=== PATIENT | female | born 1995 | race Caucasian/White ===

== ENCOUNTER → 2024-09-17 10:43 | Outpatient (REF) | payer OTHER, SELFPAY | LOC: RAD 10:43 | PROVIDERS: ATTENDING PHYSICIAN Physician Assistant Medical | DX: M25.512 Pain in left shoulder (principal) | CPT/HCPCS: 73030 ==

== ENCOUNTER 2024-10-28 05:31 | Emergency (ER) | payer OTHER, SELFPAY ==
[2024-10-28 05:33] VITALS: BP 130/81
[2024-10-28 05:48] VITALS: BP 121/72
--- NOTE | 2024-10-28 06:15 | ED.GENMED ---
History of Present Illness
General
Chief Complaint: Flank Pain
Source: patient
Time Seen by Provider: 10/28/24 05:59
History of Present Illness
History of Present Illness:
This patient is a 28-year-old female presents emergency department with complaints of abdominal discomfort, generalized that developed Friday morning approximately 4 AM followed by multiple episodes of nonbloody vomiting. She then transition to
having loose bowel movements without blood. By yesterday she noted a posterior occipital headache all day, similar to headaches that she has had in the past which she describes as a 'migraine'. This is since resolved but around 12:30 AM today she
developed very watery loose stools described as every 15 minutes. She denies recent travel, recent antibiotics, recent sick contacts. She also notes for the last 24 hours that she has had waxing and waning right flank pain, without exacerbating
relieving factors. This is sporadic and she thought potentially related to being in bed yesterday. It is not movement related. She denies dysuria, urgency, frequency, hematuria. She felt subjective fever at 12:30 AM today. Patient denies
abdominal pain currently. She also denies chest pain, shortness of breath, or other complaints.
Past History
Past History
ED Past Medical History: None
ED Past Surgical History: None
Social History
Tobacco: Non-smoker
Alcohol: Occasional
Drug: None
Personal: Single
Living: with family
Employment: Employed
Family History
Family History: Other (Noncontributory)
Phy Exam
Physical Exam
Physical Exam:
GENERAL: Alert , in no apparent distress
EYE: pupils equal and reactive
NECK: Supple, no significant adenopathy.
ENT: o/p clr, mm dry
CARDIAC: Regular rate and rhythm .
LUNGS: Clear breath sounds bilaterally, no acute respiratory distress, no wheezes/rales/rhonchi
ABDOMEN: Soft, without focal tenderness, no r/g, no cvat
NEUROLOGICAL: Alert and oriented, no focal neuro deficits
SKIN: Warm and dry, skin intact.
MUSCULOSKELETAL: No edema, well perfused.
PSYCH: Normal and appropriate interaction.
Course
Orders/Labs/Results
Orders:
Orders
10/28/24 06:14
CT Abd/Pel (IV only)-DH only Urgent
Comment:
Reason For Exam: abd pain, n,v, d, r Flank pain
Cardiac Monitoring- Treatment ONCE
0.9% Sodium Chloride 1000 ml [Nss] 1,000 ml IV BOLUS
10/28/24 06:25
Test Result ONCE
10/28/24 06:34
Complete Blood Count/No Diff Urgent
Comprehensive Metabolic Panel Urgent
HCG, Serum Qualitative Screen Urgent
Lipase Urgent
Stool Culture Urgent
FEROZ Source: Feces/Stool
Specimen Description:
Date Specimen was Collected: 10/28/24
Time Specimen was Collected: 06:32
10/28/24 06:37
Urinalysis Reflex To Culture Urgent
Date Specimen was Collected: 10/28/24
Time Specimen was Collected: 06:33
Urine Microscopic Reflex Cult Urgent
10/28/24 07:28
Ketorolac [Toradol] 15 mg IV NOW STA
10/28/24 09:09
Amoxicillin 875 mg/Clav 125 mg [Augmentin 875 mg/125 mg] 1 tablet PO NOW STA
Abnormal Lab Results
10/28/24 10/28/24
06:34 06:37
Chloride 108 H mmol/L
(98-107)
Urine Ketones 3+ A
(Negative)
Ur Occult Blood Reflex 2+ A
(Negative)
Urine RBC 3-6 A /HPF
(0-2)
Urine Bacteria (Reflex) Few A
(Negative)
Urine Albumin (Reflex) 2+ A
(Neg - Trace)
10/28/24 06:34
10/28/24 06:34
Vital Signs
Initial and Last Documented VS:
Initial Vital Signs
Temp Pulse Resp BP Pulse Ox
100.7 F H 103 21 130/81 99
10/28/24 05:33 10/28/24 05:33 10/28/24 05:33 10/28/24 05:33 10/28/24 05:33
Last Documented Vital Signs
Temp Pulse Resp BP Pulse Ox
99 F 77 24 104/68 95
10/28/24 05:52 10/28/24 06:38 10/28/24 06:38 10/28/24 06:38 10/28/24 06:45
Update Note
Update Note:
Patient presents to the Emergency Department with ___nausea vomiting diarrhea headache right flank pain
Number and Complexity of Problems Addressed at the Encounter
� Chronic conditions affecting care:
� Acute Exacerbation and/or Progression of Chronic Illness:
� Differential Diagnosis includes: But not limited to colitis, appendicitis, kidney stone, pyelonephritis, gastroenteritis, etc. etc.
Amount and/or Complexity of Data to be Reviewed and Analyzed
� I performed an independent evaluation of and my interpretation is:
EKG:
CT:
1. MILD ACUTE PANCOLITIS.
2. 2.3 cm RUPTURED LEFT OVARIAN CORPUS LUTEAL CYST.
3. Minimal peritoneal fluid in the pelvis.
4. Mild hepatosplenomegaly.
Xrays:
Laboratory Studies:generally unremarkable
Other:
� Review of other/old records reveals:
� Clinical information was obtained by an independent historian: Mom who is bedside
� Prescriptions/Medications Considered but not given:
� Further testing considered but not performed:
Risk of Complications and/or Morbidity or Mortality of Patient Management
� Social determinants of health affecting care:
� Discussion with other providers (PCP, Hospitalists, Consultants, etc):
� Escalation of care including admission/observation vs risk of discharge considered:728am pt without vomiting or abd pain. notes h/a returning slightly. toradol ordered. awaiting ct.
ED Attending Note
-
Portions of this chart may have been created with voice recognition software.� Occasional wrong word or��sound alike� substitutions may have occurred due to the inherent limitations of voice recognition software.
Discharge Plan
Departure
Patient Disposition: Home (Routine Discharge)
Date of Disposition: 10/28/24
Time of Disposition: 09:10
Patient with high blood pressure during this ER visit?: Yes
Condition: Good
Discharge Problem:
Pancolitis, Ovarian cyst
Instructions: Colitis, Ovarian cyst - ED discharge instructions, BLOOD PRESSURE
Prescriptions:
New
amoxicillin-pot clavulanate 875-125 mg tablet
1 tab PO BID Qty: 14 0RF
Referrals:
UNKNOWN - PT DOES,NOT KNOW [Family Provider]
Activity Restrictions/Additional Instructions:
PLEASE SEE YOUR DOCTOR IN CLOSE FOLLOW-UP WITHIN THE NEXT FEW DAYS. PLEASE FOLLOW-UP YOUR CULTURE RESULTS WITH YOUR DOCTOR. IF YOU DEVELOP ABDOMINAL PAIN, BLOOD IN YOUR STOOL, DIZZINESS, CHEST PAIN, SHORTNESS OF BREATH, GET WORSE, DO NOT GET
BETTER, OR OTHER WORRISOME SIGNS, PLEASE RETURN TO THE ER IMMEDIATELY!
Interventions
Interventions:
*Risk Screen - Suicide Last Done: 10/28/24 05:33
*General Assessment Last Done: 10/28/24 06:42
*Neglect/Abuse Screening Last Done: 10/28/24 05:45
*ED- Fall Risk Assessment Last Done: 10/28/24 05:45
*ED COVID-19 Vaccine History Last Done: 10/28/24 05:45
CN-Sjsuxw-Nupjtmzstl Assessment Last Done: 10/28/24 06:42
ED-Female Genitourinary Assessment Last Done: 10/28/24 06:42
Discharge Date and Time
Print Language: MOSOTHO
[2024-10-28 06:38] VITALS: BP 104/68
[2024-10-28] MEDS: NSS 1000 IV (06:39)
[2024-10-28 06:42] LABS: Hematocrit 45.5 % (37.0-47.0); Hemoglobin 15.6 g/dL (12.0-16.0); Mean Corp Hgb Conc. 34.3 g/dL (33.0-37.0); Mean Corpuscular Hgb 30.4 pg (27.0-31.0); Mean Corpuscular Volume 88.5 fL (81.0-99.0); Mean Platelet Volume 10.1 fL (7.4-10.4); Platelet Count 169 10^3/uL (130-400); Red Blood Cell Count 5.14 10^6/uL (4.20-5.40); Red Cell Dist. Width 13.2 % (11.5-14.5); White Blood Cell Count 7.8 10^3/uL (4.8-10.8)
[2024-10-28 06:50] LABS: Urine Albumin 2+ (Neg - Trace); Urine Bilirubin Negative (Negative); Urine Character Clear (Clear); Urine Color Amber; Urine Glucose Negative (Negative); Urine Ketone 3+ (Negative); Urine Leukocyte Negative (Negative); Urine Nitrite Negative (Negative); Urine Occult Blood 2+ (Negative); Urine Urobilinogen Negative (Neg - 1+)
[2024-10-28 06:57] LABS: HCG, Serum Qualitative Screen Negative
[2024-10-28 06:58] LABS: Urine Calcium Oxalate Crystals Present
[2024-10-28 06:59] LABS: Urine Bacteria Few (Negative); Urine White Cell None Seen /HPF (0-5)
[2024-10-28 07:01] LABS: ALT (SGPT) 18 U/L (0-35); AST (SGOT) 25 U/L (14-36); Albumin 4.6 g/dl (3.5-5.0); Alkaline Phosphatase 46 U/L (38-126); Blood Urea Nitrogen 12 mg/dl (7-17); Calcium 9.4 mg/dl (8.4-10.2); Carbon Dioxide 25 mmol/L (22-30); Chloride 108 mmol/L (98-107); Glucose 95 mg/dl (70-99); Lipase 62 U/L (23-300); Potassium 4.4 mmol/L (3.5-5.1); Sodium 140 mmol/L (135-145); Total Bilirubin 0.5 mg/dl (0.2-1.3); Total Protein 7.6 g/dl (6.3-8.2); eGFR > 60.00
[2024-10-28] MEDS: TORADOL 15 MG IV (07:37)
[2024-10-28] MEDS: AUGMENTIN 875 MG/125 MG 1 TABLET PO (09:23)
[2024-10-28 09:27] VITALS: BP 110/69
== END 2024-10-28 09:30 | disposition home or self-care (01) ==
LOC: EMR 05:31
PROVIDERS: EMERGENCY PHYSICIAN Emergency Medicine
DX: R10.9 Unspecified abdominal pain (principal); R11.10 Vomiting, unspecified; R19.7 Diarrhea, unspecified; R50.9 Fever, unspecified; R51.9 Headache, unspecified; K52.9 Noninfective gastroenteritis and colitis, unspecified; N83.12 Corpus luteum cyst of left ovary; K66.1 Hemoperitoneum; R16.2 Hepatomegaly with splenomegaly, not elsewhere classified; R03.0 Elevated blood-pressure reading, without diagnosis of hypertension
CPT/HCPCS: 99284; 96361; 96374; 74177; 80053; 81003; 81015; 83690; 84703; 85027; 87045; 87046; 87427; Q9967

== ENCOUNTER → 2024-10-29 10:18 | Outpatient (REF) | payer OTHER, SELFPAY | LOC: HWRAD 10:18 | PROVIDERS: ATTENDING PHYSICIAN Nurse Practitioner Family; FAMILY PHYSICIAN Emergency Medicine | DX: R10.2 Pelvic and perineal pain (principal) | CPT/HCPCS: 76830; 76856 ==

== ENCOUNTER 2024-10-30 09:49 | Emergency (ER) | payer OTHER, SELFPAY ==
[2024-10-30 09:51] VITALS: BP 111/75
--- NOTE | 2024-10-30 11:17 | ED.GENMED ---
History of Present Illness
General
Chief Complaint: Abdominal Symptoms
Time Seen by Provider: 10/30/24 10:44
History of Present Illness
History of Present Illness:
28-year-old female without significant past medical history presenting for right-sided abdominal pain. Patient since this morning she has been having severe right upper quadrant abdominal pain with nausea. She has had persistent diarrhea for the
past 3 days, came to hospital on the with her symptoms. Thought that her symptoms were may be secondary to something she ate at a [employer]. She was diagnosed with colitis at that time, as well as a ruptured right ovarian cyst. She was
started on amoxicillin. On initial visit, denies significant abdominal pain. She also had a follow-up ultrasound yesterday, without acute abnormalities. Diarrhea has persisted, however now is also having this right upper abdominal pain. Denies
chest pain or difficulty breathing. Denies abdominal surgeries. Denies fever. Denies symptoms. Denies additional acute medical complaints
Past History
Past History
ED Past Medical History: None
ED Past Surgical History: None
Social History
Tobacco: Non-smoker
Alcohol: Occasional
Drug: None
Personal: Single
Living: with family
Employment: Employed
Family History
Family History: Other (Noncontributory)
Phy Exam
Physical Exam
Physical Exam:
General: Well-appearing, no clinical signs of dehydration, nontoxic and in no acute distress
HEENT: protecting airway
Neck: appears supple
CV: Normal heart rate, regular rhythm
Resp: No accessory muscle use, no increased work of breathing
Abd: Soft and non-distended, focal tenderness to the right upper quadrant without rebound or guarding.
Extremities: No deformities, no swelling
Neuro: alert, no focal neurologic deficit
: deferred
Rectal: deferred
Psych: Normal affect
Skin: Intact
Course
Orders/Labs/Results
Orders:
Orders
10/30/24 10:58
Urinalysis Reflex To Culture Urgent
Ketorolac [Toradol] 15 mg IV NOW STA
Ondansetron Injectable [Zofran] 4 mg IV NOW STA
Test Result ONCE
10/30/24 10:59
US Abdomen Complete/Upper Urgent
Comment:
Reason For Exam: RUQ pain
10/30/24 11:24
Complete Blood Count/With Diff Urgent
Comprehensive Metabolic Panel Urgent
HCG, Serum Qualitative Screen Urgent
Lipase Urgent
Abnormal Lab Results
10/30/24
11:24
Neutrophils % 39.3 L %
(42.2-75.2)
Monocytes % 11.1 H %
(1.7-9.3)
Chloride 110 H mmol/L
(98-107)
10/30/24 11:24
10/30/24 11:24
Vital Signs
Initial and Last Documented VS:
Initial Vital Signs
Temp Pulse Resp BP Pulse Ox
98.5 F 78 16 111/75 98
10/30/24 09:51 10/30/24 09:51 10/30/24 09:51 10/30/24 09:51 10/30/24 09:51
Last Documented Vital Signs
Temp Pulse Resp BP Pulse Ox
98.5 F 78 16 111/75 98
10/30/24 09:51 10/30/24 09:51 10/30/24 09:51 10/30/24 09:51 10/30/24 09:51
MDM/Problems Addressed
MDM/Problems Addressed:
28-year-old female presenting for right upper quadrant abdominal pain since this morning. Vital signs are normal.
On exam patient is resting comfortably, no acute distress. Focal tenderness to the right upper quadrant. On review of EMR, CT imaging reviewed from 10/28 gallbladder at that time noted to be distended. Cholelithiasis versus cholecystitis. Mild
tenderness to the midepigastric abdomen, so pancreatitis is a consideration as well. Ultrasound reviewed from yesterday, no current visualization of any cysts. Patient without any right lower quadrant abdominal pain. No concern for appendicitis
or ovarian pathology. Will repeat laboratory analysis and obtain ultrasound imaging of the right upper quadrant. Toradol ministered for pain. Stool cultures are pending from 10/28.
13:20 -patient's labs are unremarkable. Ultrasound does show some gallbladder sludge, however no additional features concerning for acute cholecystitis. Patient primarily complaining of pain in epigastric region at this time. Lipase is within
normal limits. Suspect possible inflammation from enteritis, gastritis. Will start patient on pantoprazole. Otherwise remained stable. Feel stable for discharge. Return precautions discussed and patient verbalized understanding
*Critical Care Note
Total Time (30-74mins, 75-104mins- exclusive of procedures): Not Applicable
ED Attending Note
-
Portions of this chart may have been created with voice recognition software.� Occasional wrong word or��sound alike� substitutions may have occurred due to the inherent limitations of voice recognition software.
Discharge Plan
Departure
Prescriptions:
No Action
amoxicillin-pot clavulanate 875-125 mg tablet
1 tab PO BID Qty: 14 0RF
Referrals:
Basilio Montaño PA-C [Family Provider, Family Practice]
Interventions
Interventions:
*Risk Screen - Suicide Last Done: 10/30/24 09:51
*General Assessment Last Done: 10/30/24 12:11
*Neglect/Abuse Screening Last Done: 10/30/24 09:51
*ED- Fall Risk Assessment Last Done: 10/30/24 12:11
*ED COVID-19 Vaccine History Last Done: 10/30/24 12:11
ZA-Ighewf-Mbefgxsemm Assessment Last Done: 10/30/24 12:11
Discharge Date and Time
Print Language: JAPANESE
[2024-10-30] MEDS: TORADOL 15 MG IV (11:25)
[2024-10-30] MEDS: ZOFRAN 4 MG IV (11:25)
[2024-10-30 11:42] LABS: Hematocrit 41.1 % (37.0-47.0); Hemoglobin 14.6 g/dL (12.0-16.0); Mean Corp Hgb Conc. 35.5 g/dL (33.0-37.0); Mean Corpuscular Hgb 30.5 pg (27.0-31.0); Mean Platelet Volume 9.7 fL (7.4-10.4); Platelet Count 173 10^3/uL (130-400); Red Blood Cell Count 4.78 10^6/uL (4.20-5.40); Red Cell Dist. Width 13.1 % (11.5-14.5); White Blood Cell Count 4.9 10^3/uL (4.8-10.8)
[2024-10-30 11:47] LABS: HCG, Serum Qualitative Screen Negative
[2024-10-30 11:55] LABS: ALT (SGPT) 15 U/L (0-35); AST (SGOT) 19 U/L (14-36); Albumin 3.9 g/dl (3.5-5.0); Alkaline Phosphatase 44 U/L (38-126); Blood Urea Nitrogen 10 mg/dl (7-17); Calcium 8.6 mg/dl (8.4-10.2); Carbon Dioxide 23 mmol/L (22-30); Chloride 110 mmol/L (98-107); Glucose 92 mg/dl (70-99); Potassium 3.6 mmol/L (3.5-5.1); Sodium 142 mmol/L (135-145); Total Bilirubin 0.5 mg/dl (0.2-1.3); Total Protein 6.5 g/dl (6.3-8.2); eGFR > 60.00
[2024-10-30 12:24] LABS: % Basophils 0.4 % (0-2); % Eosinophils 0.4 % (0-6); % Immature Granulocytes 0.2 % (0-0.5); % Lymphocytes 48.6 % (20.5-51.1); % Monocytes 11.1 % (1.7-9.3); % Neutrophils 39.3 % (42.2-75.2); Absolute Lymphocytes 2.4 10^3/uL (1.2-3.4); Absolute Monocytes 0.5 10^3/uL (0.1-0.6); Absolute Neutrophils 1.9 10^3/uL (1.4-6.5); Nucleated Red Blood Cells % 0 %
[2024-10-30 12:43] LABS: Lipase 81 U/L (23-300)
[2024-10-30 13:45] VITALS: BP 109/68
[2024-10-30] MEDS: PROTONIX IV 40 MG IV (14:00)
== END 2024-10-30 13:45 | disposition home or self-care (01) ==
LOC: EMR 09:49
PROVIDERS: EMERGENCY PHYSICIAN Student in an Organized Health Care Education/Training Program; FAMILY PHYSICIAN Physician Assistant Medical
DX: K52.9 Noninfective gastroenteritis and colitis, unspecified (principal); K82.8 Other specified diseases of gallbladder
CPT/HCPCS: 96374; 96375; 99284; 76700; 80053; 83690; 84703; 85025